=== PATIENT | male | born 1990 | race Caucasian/White ===

== ENCOUNTER 2018-01-31 11:14 | Observation (INO) | payer BC ==
[~2018-01-31 11:14] MED LIST: Adenosine 6 MG/2 ML SDV ONE
[2018-01-31] MEDS ORDERED: Adenosine 6 MG/2 ML SDV ONE (11:23)
[2018-01-31] MEDS ORDERED: Diltiazem 25 MG/5 ML SDV ONE ×2 (11:24→11:50)
[2018-01-31] MEDS ORDERED: Sodium Chloride 0.9% 1,000 ML IV ONE ×2 (11:30→11:36)
--- NOTE | 2018-01-31 11:32 | EDM.PDOC ---
ED HPI GENERAL MEDICAL PROBLEM - General Chief Complaint: Cardiovascular Problem Stated Complaint: CHEST PAIN Time Seen by Provider: 01/31/18 11:31 Source of Information: Reports: Patient - History of Present Illness INITIAL COMMENTS - FREE TEXT/NARRATIVE: HISTORY AND PHYSICAL: History of present illness Patient presents for EMS Patient had some intermittent chest pain and palpitations he did call the ambulance on EMS arrival he was found to be tachycardic 140s to 190s for the EMS had complained of some intermittent chest pain during transport however had no pain on arrival here Rate was maintaining in the 160s it did provide adenosine and Cardizem as below rate has slowed significantly although has remained in the 100 range to 1:30 range on a Cardizem drip No fever nausea vomiting chills sweats no chest pain shortness breath headache dizziness palpitation no bowel or urine symptoms ] Review of systems: As per history of present illness and below otherwise all systems reviewed and negative. Past medical history: As per history of present illness and as reviewed below otherwise noncontributory. Surgical history: As per history of present illness and as reviewed below otherwise noncontributory. Social history: No reported history of drug or alcohol abuse. Family history: As per history of present illness and as reviewed below otherwise noncontributory. Physical exam: HEENT: Atraumatic, normocephalic, pupils reactive, negative for conjunctival pallor or scleral icterus, mucous membranes moist, throat clear, neck supple, nontender, trachea midline. Lungs: Clear to auscultation, breath sounds equal bilaterally, chest nontender. Heart: S1S2, regular, negative for clicks, rubs, or JVD. Abdomen: Soft, nondistended, nontender. Negative for masses or hepatosplenomegaly. Negative for costovertebral tenderness. Pelvis: Stable nontender. Genitourinary: Deferred. Rectal: Deferred. Extremities: Atraumatic, negative for cords or calf pain. Neurovascular unremarkable. Neuro: Awake, alert, oriented. Cranial nerves II through XII unremarkable. Cerebellum unremarkable. Motor and sensory unremarkable throughout. Exam nonfocal. Diagnostics: CBC CMP troponin EKG Chest 1 view Therapeutics: [[Muscles saline bolus Aspirin 324 mg chewable provided via EMS ] adenosine 6 mg IV Adenosine 12 mg IV Cardizem 20 mg IV] Impression: [ SVT Atrial fib] Definitive disposition and diagnosis as appropriate pending reevaluation and review of above. - Related Data Allergies Allergy/AdvReac Type Severity Reaction Status Date / Time Sulfa (Sulfonamide Allergy Cannot Verified 01/31/18 11:30 Antibiotics) Remember Home Meds: Home Meds . [No Known Home Meds] 01/31/18 [History] ED ROS GENERAL - Review of Systems Review Of Systems: See Below ED EXAM, GENERAL - Physical Exam Exam: See Below Course - Vital Signs Last Recorded V/S: Last Vital Signs Temp 97.4 F 01/31/18 11:26 Pulse 181 H 01/31/18 11:26 Resp 18 01/31/18 11:26 BP 139/77 01/31/18 11:26 Pulse Ox 99 01/31/18 11:26 - Orders/Labs/Meds Orders: Active Orders 24 hr Category Date Time Status EKG Documentation Completion [RC] STAT Care 01/31/18 11:30 Active DRUG SCREEN, URINE [URCHEM] Stat Lab 01/31/18 12:03 Ordered INR,PT,PROTHROMBIN TIME [COAG] Stat Lab 01/31/18 12:40 Received MAGNESIUM [CHEM] Stat Lab 01/31/18 13:01 Ordered UA W/MICROSCOPIC [URIN] Stat Lab 01/31/18 12:03 Ordered Diltiazem 125 mg Med 01/31/18 12:03 Active Sodium Chloride 0.9% [Normal Saline] 100 ml IV NOW Sodium Chloride 0.9% [Normal Saline] 1,000 ml Med 01/31/18 12:15 Active IV STAT Medication Orders Diltiazem HCl 125 mg/ Sodium (Chloride) 125 mls @ 5 mls/hr IV NOW ONE; Protocol Stop: 02/01/18 13:02 Last Admin: 01/31/18 12:27 Dose: 5 mg/hr, 5 mls/hr Sodium Chloride (Normal Saline) 1,000 mls @ 125 mls/hr IV STAT DAVID Last Admin: 01/31/18 12:22 Dose: 125 mls/hr Labs: Laboratory Tests 01/31/18 01/31/18 01/31/18 Range/Units 11:20 11:20 12:03 WBC 11.48 H (4.0-11.0) K/uL RBC 5.99 H (4.50-5.90) M/uL Hgb 17.3 H (13.0-17.0) g/dL Hct 50.6 H (38.0-50.0) % MCV 84.5 (80.0-98.0) fL MCH 28.9 (27.0-32.0) pg MCHC 34.2 (31.0-37.0) g/dL RDW Std Deviation 39.4 (28.0-62.0) fl RDW Coeff of [place] 13 (11.0-15.0) % Plt Count 254 (150-400) K/uL MPV 11.30 (7.40-12.00) fL Neut % (Auto) 64.2 (48.0-80.0) % Lymph % (Auto) 24.7 (16.0-40.0) % [place] % (Auto) 6.9 (0.0-15.0) % Eos % (Auto) 3.7 (0.0-7.0) % Baso % (Auto) 0.5 (0.0-1.5) % Neut # (Auto) 7.4 H (1.4-5.7) K/uL Lymph # (Auto) 2.8 H (0.6-2.4) K/uL [place] # (Auto) 0.8 (0.0-0.8) K/uL Eos # (Auto) 0.4 (0.0-0.7) K/uL Baso # (Auto) 0.1 (0.0-0.1) K/uL Nucleated RBC % 0.0 /100WBC Nucleated RBCs # 0 K/uL Sodium 140 (136-148) mmol/L Potassium 4.0 (3.5-5.1) mmol/L Chloride 104 (98-107) mmol/L Carbon Dioxide 23.2 (21.0-32.0) mmol/L BUN 14 (7.0-18.0) mg/dL Creatinine 1.2 (0.8-1.3) mg/dL Est Cr Clr Drug Dosing 105.42 mL/min Estimated GFR (MDRD) > 60.0 ml/min Glucose 119 H (74-106) mg/dL Calcium 9.8 (8.5-10.1) mg/dL Total Bilirubin 0.2 (0.2-1.0) mg/dL AST 20 (15-37) IU/L ALT 25 (14-63) IU/L Alkaline Phosphatase 115 (46-116) U/L Troponin I < 0.050 (0.000-0.056) ng/mL Total Protein 8.9 H (6.4-8.2) g/dL Albumin 4.2 (3.4-5.0) g/dL Globulin 4.7 H (2.0-3.5) g/dL Albumin/Globulin Ratio 0.9 L (1.3-2.8) Urine Color YELLOW Urine Appearance CLEAR Urine pH 6.0 (5.0-8.0) Ur Specific [place] <= 1.005 (1.001-1.035) Urine Protein NEGATIVE (NEGATIVE) mg/dL Urine Glucose (UA) NEGATIVE (NEGATIVE) mg/dL Urine Ketones NEGATIVE (NEGATIVE) mg/dL Urine Occult Blood NEGATIVE (NEGATIVE) Urine Nitrite NEGATIVE (NEGATIVE) Urine Bilirubin NEGATIVE (NEGATIVE) Urine Urobilinogen 0.2 (<2.0) EU/dL Ur Leukocyte Esterase NEGATIVE (NEGATIVE) Urine RBC NONE SEEN (0-2/HPF) Urine WBC 0-1 (0-5/HPF) Ur Epithelial Cells RARE (NONE-FEW) Urine Bacteria RARE (NEGATIVE) Urine Opiates Screen (NEGATIVE) Ur Oxycodone Screen (NEGATIVE) Urine Methadone Screen (NEGATIVE) Ur Barbiturates Screen (NEGATIVE) Ur Phencyclidine Scrn (NEGATIVE) Ur Amphetamine Screen (NEGATIVE) U Methamphetamines Scrn (NEGATIVE) U Benzodiazepines Scrn (NEGATIVE) U Cocaine Metab Screen (NEGATIVE) U Marijuana (THC) Screen (NEGATIVE) 01/31/18 Range/Units 12:03 WBC (4.0-11.0) K/uL RBC (4.50-5.90) M/uL Hgb (13.0-17.0) g/dL Hct (38.0-50.0) % MCV (80.0-98.0) fL MCH (27.0-32.0) pg MCHC (31.0-37.0) g/dL RDW Std Deviation (28.0-62.0) fl RDW Coeff of [place] (11.0-15.0) % Plt Count (150-400) K/uL MPV (7.40-12.00) fL Neut % (Auto) (48.0-80.0) % Lymph % (Auto) (16.0-40.0) % [place] % (Auto) (0.0-15.0) % Eos % (Auto) (0.0-7.0) % Baso % (Auto) (0.0-1.5) % Neut # (Auto) (1.4-5.7) K/uL Lymph # (Auto) (0.6-2.4) K/uL [place] # (Auto) (0.0-0.8) K/uL Eos # (Auto) (0.0-0.7) K/uL Baso # (Auto) (0.0-0.1) K/uL Nucleated RBC % /100WBC Nucleated RBCs # K/uL Sodium (136-148) mmol/L Potassium (3.5-5.1) mmol/L Chloride (98-107) mmol/L Carbon Dioxide (21.0-32.0) mmol/L BUN (7.0-18.0) mg/dL Creatinine (0.8-1.3) mg/dL Est Cr Clr Drug Dosing mL/min Estimated GFR (MDRD) ml/min Glucose (74-106) mg/dL Calcium (8.5-10.1) mg/dL Total Bilirubin (0.2-1.0) mg/dL AST (15-37) IU/L ALT (14-63) IU/L Alkaline Phosphatase (46-116) U/L Troponin I (0.000-0.056) ng/mL Total Protein (6.4-8.2) g/dL Albumin (3.4-5.0) g/dL Globulin (2.0-3.5) g/dL Albumin/Globulin Ratio (1.3-2.8) Urine Color Urine Appearance Urine pH (5.0-8.0) Ur Specific [place] (1.001-1.035) Urine Protein (NEGATIVE) mg/dL Urine Glucose (UA) (NEGATIVE) mg/dL Urine Ketones (NEGATIVE) mg/dL Urine Occult Blood (NEGATIVE) Urine Nitrite (NEGATIVE) Urine Bilirubin (NEGATIVE) Urine Urobilinogen (<2.0) EU/dL Ur Leukocyte Esterase (NEGATIVE) Urine RBC (0-2/HPF) Urine WBC (0-5/HPF) Ur Epithelial Cells (NONE-FEW) Urine Bacteria (NEGATIVE) Urine Opiates Screen NEGATIVE (NEGATIVE) Ur Oxycodone Screen NEGATIVE (NEGATIVE) Urine Methadone Screen NEGATIVE (NEGATIVE) Ur Barbiturates Screen NEGATIVE (NEGATIVE) Ur Phencyclidine Scrn NEGATIVE (NEGATIVE) Ur Amphetamine Screen NEGATIVE (NEGATIVE) U Methamphetamines Scrn NEGATIVE (NEGATIVE) U Benzodiazepines Scrn NEGATIVE (NEGATIVE) U Cocaine Metab Screen NEGATIVE (NEGATIVE) U Marijuana (THC) Screen NEGATIVE (NEGATIVE) Meds: Medications Generic Name Dose Route Start Last Admin Trade Name Freq PRN Reason Stop Dose Admin Diltiazem HCl 125 mg/ Sodium 125 mls @ 5 mls/hr 01/31/18 12:03 01/31/18 12:27 Chloride IV 02/01/18 13:02 5 mg/hr NOW ONE 5 mls/hr Administration Protocol 5 MG/HR Sodium Chloride 1,000 mls @ 125 mls/hr 01/31/18 12:15 01/31/18 12:22 Normal Saline IV 125 mls/hr STAT DAVID Administration Discontinued Medications Generic Name Dose Route Start Last Admin Trade Name Freq PRN Reason Stop Dose Admin Adenosine Confirm 01/31/18 11:23 01/31/18 11:37 Adenocard Administered 01/31/18 11:24 Not Given Dose 12 mg .ROUTE .STK-MED ONE Adenosine 6 mg 01/31/18 11:36 01/31/18 11:41 Adenocard IVPUSH 01/31/18 11:37 6 mg NOW ONE Administration Adenosine 12 mg 01/31/18 11:36 01/31/18 11:41 Adenocard IVPUSH 01/31/18 11:37 12 mg NOW ONE Administration Digoxin 125 mcg 01/31/18 12:57 Lanoxin IVPUSH 01/31/18 12:58 ONETIME ONE Diltiazem HCl Confirm 01/31/18 11:24 01/31/18 11:37 Diltiazem Administered 01/31/18 11:25 Not Given Dose 25 mg .ROUTE .STK-MED ONE Diltiazem HCl 20 mg 01/31/18 11:36 01/31/18 11:40 Diltiazem IVPUSH 01/31/18 11:37 20 mg ONETIME ONE Administration Diltiazem HCl Confirm 01/31/18 11:50 01/31/18 12:06 Diltiazem Administered 01/31/18 11:51 Not Given Dose 25 mg .ROUTE .STK-MED ONE Diltiazem HCl 25 mg 01/31/18 12:06 01/31/18 12:21 Diltiazem IVPUSH 01/31/18 12:07 25 mg ONETIME ONE Administration Enoxaparin Sodium 120 mg 01/31/18 11:59 01/31/18 12:20 Lovenox SUBCUT 01/31/18 12:00 Not Given ONETIME ONE Enoxaparin Sodium 120 mg 01/31/18 12:30 01/31/18 12:22 Lovenox SUBCUT 01/31/18 12:31 120 mg ONETIME ONE Administration Sodium Chloride 1,000 mls @ 999 mls/hr 01/31/18 11:30 01/31/18 11:42 Normal Saline IV 01/31/18 12:30 999 mls/hr STAT ONE Administration Sodium Chloride 1,000 mls @ 999 mls/hr 01/31/18 11:36 01/31/18 12:06 Normal Saline IV 01/31/18 12:36 Not Given .Bolus ONE Departure - Departure Time of Disposition: 13:04 Disposition: Refer to Observation Condition: Fair Clinical Impression: Atrial fibrillation with RVR Referrals: PCP,None [Primary Care Provider] - Forms: ED Department Discharge - My Orders Last 24 Hours: My Active Orders 01/31/18 11:30 EKG Documentation Completion [RC] STAT 01/31/18 12:03 DRUG SCREEN, URINE [URCHEM] Stat UA W/MICROSCOPIC [URIN] Stat Diltiazem 125 mg Sodium Chloride 0.9% [Normal Saline] 100 ml IV NOW 01/31/18 12:15 Sodium Chloride 0.9% [Normal Saline] 1,000 ml IV STAT 01/31/18 12:40 INR,PT,PROTHROMBIN TIME [COAG] Stat 01/31/18 13:01 MAGNESIUM [CHEM] Stat - Assessment/Plan Last 24 Hours: My Active Orders 01/31/18 11:30 EKG Documentation Completion [RC] STAT 01/31/18 12:03 DRUG SCREEN, URINE [URCHEM] Stat UA W/MICROSCOPIC [URIN] Stat Diltiazem 125 mg Sodium Chloride 0.9% [Normal Saline] 100 ml IV NOW 01/31/18 12:15 Sodium Chloride 0.9% [Normal Saline] 1,000 ml IV STAT 01/31/18 12:40 INR,PT,PROTHROMBIN TIME [COAG] Stat 01/31/18 13:01 MAGNESIUM [CHEM] Stat
[2018-01-31] MEDS ORDERED: Adenosine 6 MG/2 ML SDV IVPUSH ONE ×2 (11:36)
[2018-01-31] MEDS ORDERED: Diltiazem 25 MG/5 ML SDV IVPUSH ONE ×2 (11:36→12:06)
[2018-01-31] MEDS ORDERED: Enoxaparin 60 MG/0.6 ML Syringe SUBCUT ONE (11:59)
[2018-01-31] MEDS ORDERED: Diltiazem 125 MG in Sodium Chloride 0.9% 100 ML IV ONE (12:03)
--- NOTE | 2018-01-31 12:09 | CR ---
EXAMINATION: Portable chest radiograph. HISTORY: Pain. FINDINGS: The trachea is midline. The cardiomediastinal silhouette is within normal limits. No pulmonary infilt rates, effusions or pneumothorax. Osseous structures appear unremarkable. IMPRESSION: No acute cardiopulmonary process.
[2018-01-31] MEDS: Sodium Chloride 0.9% 1,000 ML IV SCH ×2 (12:22→20:24)
[2018-01-31] MEDS ORDERED: Enoxaparin 150 MG/1 ML Syringe SUBCUT ONE (12:30)
[2018-01-31 12:39] LABS: CHLORIDE,CL 104 mmol/L (98-107); SODIUM,NA 140 mmol/L (136-148)
[2018-01-31] MEDS ORDERED: Digoxin 500 MCG/2 ML Amp IVPUSH ONE (12:57)
[2018-01-31] MEDS ORDERED: Acetaminophen 325 MG Tab PO PRN (17:46)
--- NOTE | 2018-01-31 22:25 | PCM.HP ---
H&P History of Present Illness - General Date of Service: 02/01/18 Admit Problem/Dx: Admission Diagnosis/Problem Admission Diagnosis/Problem Atrial fibrillation - History of Present Illness Initial Comments - Free Text/Narative: 27 yo male who presented with palpitations. He reports palpitations on and off for the past year but this time it was persistent and did not go away. In the ED he was noted to have a SVT of 160s-200s and was given adenosine. His rhythm slowed down and he was noted to be in atrial fibrillation. He was placed on a diltiazem drip and give digoxin. He did eventually converted to normal sinus rhythm in the ED. He denies any shortness of breath, chest pain or fevers. Headache Pain Score (Numeric/FACES): 2 - Related Data Allergies/Adverse Reactions: Allergies Allergy/AdvReac Type Severity Reaction Status Date / Time Sulfa (Sulfonamide Allergy Cannot Verified 01/31/18 11:30 Antibiotics) Remember Home Medications: Home Meds Aspirin 325 mg PO DAILY #30 tablet 02/01/18 [Rx] Past Medical History - Past Health History Medical/Surgical History: Denies Medical/Surgical History Respiratory History: Reports: Asthma Musculoskeletal History: Reports: Fracture Other Musculoskeletal History: Metatarsal - Infectious Disease History Infectious Disease History: Reports: Chicken Pox, Other (See Below) Other Infectious Disease History: Cold sores Social & Family History - Family History Endocrine/Metabolic: Reports: Other (See Below) Other Endocrine/Metabolic Family History: Mother diabetes-unknown type Oncologic: Reports: Other (See Below) Other Oncologic Family History: Maternal grandfather with cancer-unknown - Tobacco Use Smoking Status *Q: Never Smoker Second Hand Smoke Exposure: No - Caffeine Use Caffeine Use: Reports: Soda - Recreational Drug Use Recreational Drug Use: No H&P Review of Systems - Review of Systems: Review Of Systems: ROS reveals no pertinent complaints other than HPI. Exam - Exam Exam: See Below - Vital Signs Vital Signs: Last Vital Signs Temp 35.7 C 01/31/18 20:00 Pulse 75 01/31/18 13:48 Resp 14 01/31/18 21:00 BP 134/79 01/31/18 21:00 Pulse Ox 98 01/31/18 21:00 Weight: 121.109 kg - Exam General: Alert, Oriented Neck: Supple Lungs: Clear to Auscultation, Normal Respiratory Effort Cardiovascular: Regular Rate, Regular Rhythm GI/Abdominal Exam: Soft, Non-Tender Extremities: Non-Tender, No Pedal Edema Skin: Warm, Dry, Intact - Patient Data Lab Results Last 24 hrs: Laboratory Results - last 24 hr 01/31/18 01/31/18 01/31/18 Range/Units 11:20 11:20 11:46 WBC 11.48 H (4.0-11.0) K/uL RBC 5.99 H (4.50-5.90) M/uL Hgb 17.3 H (13.0-17.0) g/dL Hct 50.6 H (38.0-50.0) % MCV 84.5 (80.0-98.0) fL MCH 28.9 (27.0-32.0) pg MCHC 34.2 (31.0-37.0) g/dL RDW Std Deviation 39.4 (28.0-62.0) fl RDW Coeff of [place] 13 (11.0-15.0) % Plt Count 254 (150-400) K/uL MPV 11.30 (7.40-12.00) fL Neut % (Auto) 64.2 (48.0-80.0) % Lymph % (Auto) 24.7 (16.0-40.0) % [place] % (Auto) 6.9 (0.0-15.0) % Eos % (Auto) 3.7 (0.0-7.0) % Baso % (Auto) 0.5 (0.0-1.5) % Neut # (Auto) 7.4 H (1.4-5.7) K/uL Lymph # (Auto) 2.8 H (0.6-2.4) K/uL [place] # (Auto) 0.8 (0.0-0.8) K/uL Eos # (Auto) 0.4 (0.0-0.7) K/uL Baso # (Auto) 0.1 (0.0-0.1) K/uL Nucleated RBC % 0.0 /100WBC Nucleated RBCs # 0 K/uL INR Sodium 140 (136-148) mmol/L Potassium 4.0 (3.5-5.1) mmol/L Chloride 104 (98-107) mmol/L Carbon Dioxide 23.2 (21.0-32.0) mmol/L BUN 14 (7.0-18.0) mg/dL Creatinine 1.2 (0.8-1.3) mg/dL Est Cr Clr Drug Dosing 105.42 mL/min Estimated GFR (MDRD) > 60.0 ml/min Glucose 119 H (74-106) mg/dL Calcium 9.8 (8.5-10.1) mg/dL Magnesium 2.0 (1.8-2.4) mg/dL Total Bilirubin 0.2 (0.2-1.0) mg/dL AST 20 (15-37) IU/L ALT 25 (14-63) IU/L Alkaline Phosphatase 115 (46-116) U/L Troponin I < 0.050 (0.000-0.056) ng/mL Total Protein 8.9 H (6.4-8.2) g/dL Albumin 4.2 (3.4-5.0) g/dL Globulin 4.7 H (2.0-3.5) g/dL Albumin/Globulin Ratio 0.9 L (1.3-2.8) Urine Color Urine Appearance Urine pH (5.0-8.0) Ur Specific [place] (1.001-1.035) Urine Protein (NEGATIVE) mg/dL Urine Glucose (UA) (NEGATIVE) mg/dL Urine Ketones (NEGATIVE) mg/dL Urine Occult Blood (NEGATIVE) Urine Nitrite (NEGATIVE) Urine Bilirubin (NEGATIVE) Urine Urobilinogen (<2.0) EU/dL Ur Leukocyte Esterase (NEGATIVE) Urine RBC (0-2/HPF) Urine WBC (0-5/HPF) Ur Epithelial Cells (NONE-FEW) Urine Bacteria (NEGATIVE) Urine Opiates Screen (NEGATIVE) Ur Oxycodone Screen (NEGATIVE) Urine Methadone Screen (NEGATIVE) Ur Barbiturates Screen (NEGATIVE) Ur Phencyclidine Scrn (NEGATIVE) Ur Amphetamine Screen (NEGATIVE) U Methamphetamines Scrn (NEGATIVE) U Benzodiazepines Scrn (NEGATIVE) U Cocaine Metab Screen (NEGATIVE) U Marijuana (THC) Screen (NEGATIVE) 01/31/18 01/31/18 01/31/18 Range/Units 12:03 12:03 12:40 WBC (4.0-11.0) K/uL RBC (4.50-5.90) M/uL Hgb (13.0-17.0) g/dL Hct (38.0-50.0) % MCV (80.0-98.0) fL MCH (27.0-32.0) pg MCHC (31.0-37.0) g/dL RDW Std Deviation (28.0-62.0) fl RDW Coeff of [place] (11.0-15.0) % Plt Count (150-400) K/uL MPV (7.40-12.00) fL Neut % (Auto) (48.0-80.0) % Lymph % (Auto) (16.0-40.0) % [place] % (Auto) (0.0-15.0) % Eos % (Auto) (0.0-7.0) % Baso % (Auto) (0.0-1.5) % Neut # (Auto) (1.4-5.7) K/uL Lymph # (Auto) (0.6-2.4) K/uL [place] # (Auto) (0.0-0.8) K/uL Eos # (Auto) (0.0-0.7) K/uL Baso # (Auto) (0.0-0.1) K/uL Nucleated RBC % /100WBC Nucleated RBCs # K/uL INR 0.98 Sodium (136-148) mmol/L Potassium (3.5-5.1) mmol/L Chloride (98-107) mmol/L Carbon Dioxide (21.0-32.0) mmol/L BUN (7.0-18.0) mg/dL Creatinine (0.8-1.3) mg/dL Est Cr Clr Drug Dosing mL/min Estimated GFR (MDRD) ml/min Glucose (74-106) mg/dL Calcium (8.5-10.1) mg/dL Magnesium (1.8-2.4) mg/dL Total Bilirubin (0.2-1.0) mg/dL AST (15-37) IU/L ALT (14-63) IU/L Alkaline Phosphatase (46-116) U/L Troponin I (0.000-0.056) ng/mL Total Protein (6.4-8.2) g/dL Albumin (3.4-5.0) g/dL Globulin (2.0-3.5) g/dL Albumin/Globulin Ratio (1.3-2.8) Urine Color YELLOW Urine Appearance CLEAR Urine pH 6.0 (5.0-8.0) Ur Specific [place] <= 1.005 (1.001-1.035) Urine Protein NEGATIVE (NEGATIVE) mg/dL Urine Glucose (UA) NEGATIVE (NEGATIVE) mg/dL Urine Ketones NEGATIVE (NEGATIVE) mg/dL Urine Occult Blood NEGATIVE (NEGATIVE) Urine Nitrite NEGATIVE (NEGATIVE) Urine Bilirubin NEGATIVE (NEGATIVE) Urine Urobilinogen 0.2 (<2.0) EU/dL Ur Leukocyte Esterase NEGATIVE (NEGATIVE) Urine RBC NONE SEEN (0-2/HPF) Urine WBC 0-1 (0-5/HPF) Ur Epithelial Cells RARE (NONE-FEW) Urine Bacteria RARE (NEGATIVE) Urine Opiates Screen NEGATIVE (NEGATIVE) Ur Oxycodone Screen NEGATIVE (NEGATIVE) Urine Methadone Screen NEGATIVE (NEGATIVE) Ur Barbiturates Screen NEGATIVE (NEGATIVE) Ur Phencyclidine Scrn NEGATIVE (NEGATIVE) Ur Amphetamine Screen NEGATIVE (NEGATIVE) U Methamphetamines Scrn NEGATIVE (NEGATIVE) U Benzodiazepines Scrn NEGATIVE (NEGATIVE) U Cocaine Metab Screen NEGATIVE (NEGATIVE) U Marijuana (THC) Screen NEGATIVE (NEGATIVE) Result Diagrams: 01/31/18 11:20 01/31/18 11:20 Problem List Initiated/Reviewed/Updated: Yes Orders Last 24hrs: Active Orders 24 hr Category Date Time Status Admission Status [Patient Status] [ADT] Stat ADT 01/31/18 13:04 Active EKG Documentation Completion [RC] STAT Care 01/31/18 11:30 Active Regular Diet [DIET] Diet 01/31/18 Dinner Active DRUG SCREEN, URINE [URCHEM] Stat Lab 01/31/18 12:03 Ordered UA W/MICROSCOPIC [URIN] Stat Lab 01/31/18 12:03 Ordered Acetaminophen [Tylenol] Med 01/31/18 17:46 Active 650 mg PO Q6H PRN Diltiazem 125 mg Med 01/31/18 12:03 Active Sodium Chloride 0.9% [Normal Saline] 100 ml IV NOW Sodium Chloride 0.9% [Normal Saline] 1,000 ml Med 01/31/18 12:15 Active IV STAT Medication Orders Acetaminophen (Tylenol) 650 mg PO Q6H PRN PRN Reason: Pain Last Admin: 01/31/18 19:05 Dose: 650 mg Diltiazem HCl 125 mg/ Sodium (Chloride) 125 mls @ 5 mls/hr IV NOW ONE; Protocol Stop: 02/01/18 13:02 Last Admin: 01/31/18 12:27 Dose: 5 mg/hr, 5 mls/hr Sodium Chloride (Normal Saline) 1,000 mls @ 125 mls/hr IV STAT DAVID Last Admin: 01/31/18 20:24 Dose: 125 mls/hr Infusion: 01/31/18 20:22 Dose: 125 mls/hr Admin: 01/31/18 12:22 Dose: 125 mls/hr Assessment/Plan Comment:: 27 yo male who presents with palpitations and found to be in atrial fibrillation with RVR. He converted spontaneously to normal sinus rhythm. He was monitored overnight without any events. He was discharged home on daily aspirin. He is to follow up with Dr. Gonzales.
[2018-02-01] MEDS: Sodium Chloride 0.9% 1,000 ML IV SCH (04:24)
== END 2018-02-01 09:05 | disposition home or self-care (01) ==
LOC: MW.ED 11:14 → MW.ICU 13:48
PROVIDERS: ADMIT Internal Medicine; ATTEND Internal Medicine
DX: I48.0 Paroxysmal atrial fibrillation (principal); J45.909 Unspecified asthma, uncomplicated; Z88.2 Allergy status to sulfonamides
CPT/HCPCS: 36415; 71045; 80053; 80305; 81001; 83735; 84484; 85025; 85610; 93005; 96361; 96365; 96366; 96372; 96374; 96375; 96376; 99285; A9270; G0378; J0153; J1160; J1650; J3490; J7030; J7040; 99284